=== PATIENT | male | born 1955 | race Caucasian/White ===

== ENCOUNTER 2017-03-17 05:50 | Day surgery (SDC) | payer OTHER ==
[~2017-03-17] VITALS: Ht 190.5 cm; Wt 93.2 kg
[2017-03-17 06:32] LABS: BASOPHILS 0 % (0-2); EOSINOPHILS 0.8 % (0-7); HEMATOCRIT 53.3 % (42.0-54.0); HEMOGLOBIN 17.8 g/dL (13.5-17.5); IMMATURE GRANULOCYTES 0.3 % (0-5); LYMPHOCYTES 17.5 % (15-50); MCH 31.1 pg (26.0-34.0); MCHC 33.4 g/dL (31.0-37.0); MEAN PLATELET VOLUME 10.1 fL (7.4-10.4); MONOCYTES 10.5 % (2-11); NEUTROPHILS 70.9 % (40-80); PLATELET COUNT 226 10x3/uL (130-400); RBC 5.73 10x6/uL (4.20-6.10); RDW 13.6 % (11.5-14.5); WBC 7.3 10x3/uL (4.8-10.8)
[2017-03-17 06:58] LABS: ANION GAP 12.4 mmol/L (8-16); CALCIUM 8.8 mg/dL (8.5-10.1); CARBON DIOXIDE 28.7 mmol/L (21.0-32.0); CREATININE - SERUM 1.4 mg/dL (0.6-1.3); POTASSIUM - SERUM 4.1 mmol/L (3.5-5.1)
[2017-03-17] MEDS ORDERED: OMEPRAZOLE40 MG PO (07:12)
[2017-03-17] MEDS ORDERED: BENICAR20 MG PO (07:12)
[2017-03-17] MEDS ORDERED: CLARITIN 10 MG10 MG PO (07:13)
[2017-03-17] MEDS ORDERED: SINGULAIR10 MG PO (07:16)
[2017-03-17] MEDS ORDERED: TESSALON PERLE100 MG PO (07:17)
[2017-03-17] MEDS ORDERED: LEVAQUIN500 MG PO (07:17)
[2017-03-17 07:24] VITALS: BP 102/64; Ht 190.5 cm; Wt 93.2 kg
--- NOTE | 2017-03-17 09:47 | NUR ---
0846- PT TO ROOM, LEFT LATERAL POSITION. AWAKE AND RESPONDING TO VERBAL STIMULI. AT BEDSIDE. PASSING GAS, FULL LIQUIDS OFFERED. 0900- AT BEDSIDE SPEAKING WITH PT AND SPOUSE ABOUT PROCEDURE AND FINDINGS. 0920- FULL LIQUIDS TOLERATED 0930- IV D/C'D, PT TOLERATED. CATHETER INTACT.
--- NOTE | 2017-03-17 10:02 | NUR ---
0955- DISCHARGE INSTRUCTIONS COMPLETED, PT VERBALIZED UNDERSTANDING. PAPERWORK SIGNED. 1000- PT DISCHARGED VIA WHEELCHAIR WITH .
--- NOTE | 2017-03-20 13:22 | OP ---
PATIENT NAME: LINDA DAIGLE MEDICAL RECORD: [id number] :53 LOCATION:D.OPS ADMISSION DATE: SURGEON: DEYSI CAMPBELL MD DATE OF OPERATION: 03/17/2017 REFERRED BY: Dr. Jose. OPERATION PERFORMED: Colonoscopy and cold biopsy forceps polypectomy, removing 1 sessile 3-mm benign appearing polyp from the descending colon. PREOPERATIVE DIAGNOSES: Personal history of colon polyps with last colonoscopy in excess of 5 years ago and family history of colon cancer in his mother and high risk individual for colorectal cancer. PREOPERATIVE NOTE: Mr. Daigle is a 62-year-old retired gentleman referred by Dr. Jose for colonoscopy. He has had multiple colonoscopies in the past since age 48 when he had his first screening exam and has had multiple polyps, most of these. His last colonoscopy was just over 5 years ago and he says he had 1 small polyp removed at that time. He is brought to the GI lab today as an outpatient on Dr. Jose's referral. He had a standard MiraLax bowel prep and is to receive TIVA with propofol per ROLLER LEVELER OPERATOR for the examination. Under TIVA and lateral decubitus position, a rectal exam was performed. This revealed no evidence of perianal sepsis or inflammation. He has some prolapsing internal and external hemorrhoidal columns with a prominent external hemorrhoidal tags, but no evidence of thrombosis or bleeding. Anal sphincter tone was normal, appreciated no masses and could not palpate the prostate well, but it's lower portion was without nodules and I was not impressed that it was enlarged. The Olympus colonoscope was then introduced through the anal canal and advanced fairly easily to the cecum. The prep was good. I documented the ileocecal valve and appendiceal orifice and slowly removed the scope obtaining an excellent examination. One small benign appearing sessile polypoid lesion in the descending colon was biopsied and removed with cold biopsy forceps. There were no other colonic lesions identified. There were no diverticula, etc. The scope was retroflexed in the rectum and no other lesions identified and again photography of the distal rectum and upper anal canal was done. The scope was removed and the patient then in stable condition awakened and later taken back to his room in the outpatient department. My recommendation for this patient is that he have a repeat colonoscopy probably best in 3 years as I consider him to be a high risk individual for colon cancer and a new polyps certainly it should be done, no more than 5 years from now. For today, he will resume his usual diet and medications and will follow up his appointment with Dr. Jose. He did not return to see me in the office other than on a p.r.n. basis. He has requested to call my office or call me personally on my cell phone if it's after hours or on weekends to report any difficulties with abdominal pain or any other concerns he might have. TRANSINT:[id number] Voice Confirmation ID: [id number] DOCUMENT ID: [id number] OPERATIVE REPORT [id number] LINDA DAIGLE, DEYSI KNIGHT at 1322 CC: ITZ JOSE DO [id number] DICTATION DATE: 03/17/17852 DRYING MACHINE OPERATOR: 03/17/[address] [facility] 03/17/17 [id number] [place] [address]
== END 2017-03-17 10:00 | disposition home or self-care (01) ==
LOC: D.OPS 05:50
PROVIDERS: Anesthesiology
DX: D12.4 Benign neoplasm of descending colon (principal); K21.9 Gastro-esophageal reflux disease without esophagitis; M19.90 Unspecified osteoarthritis, unspecified site; Z01.812 Encounter for preprocedural laboratory examination; Z95.0 Presence of cardiac pacemaker; Z80.0 Family history of malignant neoplasm of digestive organs

== ENCOUNTER 2018-06-22 07:19 | Day surgery (SDC) | payer MEDICARE, OTHER ==
[~2018-06-22] VITALS: Ht 190.5 cm; Wt 101.6 kg
--- NOTE | ~2018-06-22 | OP ---
PATIENT NAME: LINDA RODRIGUEZ MEDICAL RECORD: [id number] :51 LOCATION:D.OPS ADMISSION DATE: SURGEON: CHRISTIANO MAGALLON MD DATE OF OPERATION: 06/22/2018 PREOPERATIVE DIAGNOSES: 1. Right neck mass. 2. Atrial fibrillation. 3. Hypertension. 4. Hypercholesterolemia. POSTOPERATIVE DIAGNOSES: 1. Right neck mass. 2. Atrial fibrillation. 3. Hypertension. 4. Hypercholesterolemia. PROCEDURE: Excision of 2 cm right neck lipoma. SURGEON: Christiano Magallon MD REPORT OF PROCEDURE: The patient's right neck was prepped and draped in sterile fashion. An oblique incision was made overlying the mass. Electrocautery was used to dissect through the subcutaneous tissues. Underneath the muscle, there was a firm mass palpated. We some of the fibers of the muscle and were able to encounter a small to moderate size lipoma. This lipoma was excised from the surrounding tissues and once it was removed, it appeared to total approximately 2 cm in greatest diameter. The underlying tissue was inspected and there was no sign of any other masses or lesions visible. The wound was then irrigated out with normal saline and the subcutaneous tissues and muscle were reapproximated with interrupted 3-0 Vicryl. The skin was closed with running subcutaneous 5-0 Monocryl. A total of 10 mL of 0.25% Marcaine with epinephrine was infused into the surrounding tissues and the wound was dressed appropriately. COMPLICATIONS: None. CONDITION: Stable. ANESTHESIA: General endotracheal and local. BLOOD LOSS: Minimal. TRANSINT:[id number] Voice Confirmation ID: [id number] DOCUMENT ID: [id number] CHRISTIANO MAGALLON MD at 0918 CC: ITZ PATEL DO [id number] DICTATION DATE: 06/22/18 1110 MATERIALS ENGINEERING TECHNICIAN: 06/22/18 1308 [facility] 06/22/18 [place] [address]
[~2018-06-22 07:19] MED LIST: ASPIRIN EC81 M1 PO; BENICAR20 MG PO; BETAPACE 120 M120 MG PO; CLARITIN 10 MG10 MG PO; LEVAQUIN500 MG PO; OMEPRAZOLE40 MG PO; SINGULAIR10 MG PO; TESSALON PERLE100 MG PO
[2018-06-22 07:50] LABS: BASOPHILS 0.2 % (0-2); HEMATOCRIT 44.8 % (42.0-54.0); HEMOGLOBIN 15.3 g/dL (13.5-17.5); LYMPHOCYTES 26.8 % (15-50); MCH 31.3 pg (26.0-34.0); MCHC 34.2 g/dL (31.0-37.0); MCV 91.6 fL (80.0-100.0); MEAN PLATELET VOLUME 9.7 fL (7.4-10.4); MONOCYTES 8.9 % (2-11); NEUTROPHILS 62.1 % (40-80); PLATELET COUNT 217 10x3/uL (130-400); RBC 4.89 10x6/uL (4.20-6.10); RDW 13.1 % (11.5-14.5); WBC 4.5 10x3/uL (4.8-10.8)
[2018-06-22 08:05] LABS: ANION GAP 8.8 mmol/L (8-16); CALCIUM 8.3 mg/dL (8.5-10.1); CARBON DIOXIDE 30.4 mmol/L (21.0-32.0); CREATININE - SERUM 1.3 mg/dL (0.6-1.3); POTASSIUM - SERUM 4.2 mmol/L (3.5-5.1)
[2018-06-22 08:25] VITALS: BP 139/93; Ht 190.5 cm; Wt 101.6 kg
[2018-06-22] MEDS ORDERED: HYDROCODONE-APA1 TAB PO (11:03)
== END 2018-06-22 14:20 | disposition home or self-care (01) ==
LOC: D.OPS 07:19
PROVIDERS: Surgery
DX: D17.0 Benign lipomatous neoplasm of skin and subcutaneous tissue of head, face and neck (principal)

== ENCOUNTER → 2018-07-23 09:41 | Outpatient (CLI) | payer MEDICARE, OTHER ==
[2018-06-22 08:25] VITALS: BMI 28.0
[~2018-07-23 09:41] MED LIST changes: +HYDROCODONE-APA1 TAB PO
== END | disposition home or self-care (01) ==
LOC: D.CT 09:41
DX: R10.9 Unspecified abdominal pain (principal)

== ENCOUNTER → 2019-10-17 12:20 | Outpatient (CLI) | payer MEDICARE, OTHER ==
[2018-06-22 08:25] VITALS: BMI 28.0
== END | disposition home or self-care (01) ==
LOC: D.MRI 12:20
PROVIDERS: ATTEND Clinical Nurse Specialist Family Health
DX: M25.561 Pain in right knee (principal)

== ENCOUNTER 2019-12-01 05:10 | Day surgery (SDC) | payer MEDICARE, OTHER ==
[2019-11-30 09:30] LABS: ANION GAP 7.8 mmol/L (8-16); CALCIUM 8.6 mg/dL (8.5-10.1); CARBON DIOXIDE 32.5 mmol/L (21.0-32.0); CREATININE - SERUM 1.3 mg/dL (0.6-1.3); POTASSIUM - SERUM 4.3 mmol/L (3.5-5.1)
[2019-11-30 09:45] LABS: HEMATOCRIT 46.7 % (42.0-54.0); HEMOGLOBIN 15.9 g/dL (13.5-17.5); MCH 31.2 pg (26.0-34.0); MCV 91.7 fL (80.0-100.0); MEAN PLATELET VOLUME 9.7 fL (7.4-10.4); RBC 5.09 10x6/uL (4.20-6.10); WBC 4.8 10x3/uL (4.8-10.8)
[~2019-12-01] VITALS: Ht 190.5 cm; Wt 100.2 kg
[2019-12-01 06:02] VITALS: BP 138/96; Ht 190.5 cm; Wt 100.2 kg
[2019-12-01] MEDS ORDERED: HYDROCODON-ACE1 EA10 PO (08:23)
--- NOTE | 2019-12-01 10:05 | NUR ---
1000 PT ASKING FOR PAIN MEDICATION DUE TO BURNING SENSATION IN SURGICAL SITE. NORCO GIVEN ORDERED
--- NOTE | 2019-12-01 15:07 | NUR ---
1030 PT STATES THAT SURGICAL SITE IS STILL BURNING AND RATES IT A 3-4 OUT OF 10. NO REACTION NOTED FROM NORCO. IV DC'D. CATHETER TIP INTACT. NO BLEEDING AT SITE AFTER HOLDING PRESSURE. BANDAID APPLIED. 1041 NO DIFFICULTY IN TRANSFER FROM BED TO STRETCHER. PT READY TO BE DISCHARGED HOME
--- NOTE | 2019-12-05 08:35 | OP ---
PATIENT NAME: LINDA RODRIGUEZ MEDICAL RECORD: [id number] :51 LOCATION:D.OPS ADMISSION DATE: SURGEON: DEYSI LEAHY MD DATE OF OPERATION: 12/01/2019 PREOPERATIVE DIAGNOSIS: Medial meniscus tear of the right knee. POSTOPERATIVE DIAGNOSIS: Medial meniscus tear of the right knee. PROCEDURE: Arthroscopic partial medial meniscectomy of the right knee. SURGEON: Deysi Leahy MD ANESTHESIA: General. INTRAOPERATIVE COMPLICATIONS: None. 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 OPERATIVE SUMMARY IN DETAIL: After obtaining the appropriate preoperative orthopedic surgery consent as well as anesthetic consultation, evaluation and clearance, the patient was brought to the operating room and placed on the operating table in the supine position. After general laryngeal mask airway was administered, tourniquet was placed on the proximal aspect of the right lower extremity. Right lower extremity was prepped and draped in routine sterile fashion. At this point, the appropriate preoperative timeout was taken and agreed upon by all. The leg was elevated and exsanguinated, tourniquet was inflated to 350 mmHg. Routine inferolateral portal was established followed by superomedial portal and inferomedial portal. Diagnostic arthroscopy did reveal the patient to have the above findings. Combination of a meniscotome as well as a 4-0 resector were utilized to debride the patient's meniscus back to stable meniscal elements with good retained meniscus. Lateral compartment was clear as was the patellofemoral compartment. Having completed this, the knee was insufflated with 80 mg of Depo-Medrol and 30 cc of 0.25% Marcaine with epinephrine. Arthroscopy portals were closed in routine interrupted fashion using 4-0 Prolene. Sterile dressings were applied. The patient was awakened and taken to recovery room in stable condition. All final needle and sponge counts were correct. TRANSINT:[id number] Voice Confirmation ID: [id number] DOCUMENT ID: [id number] DEYSI LEAHY MD at 0835 CC: [id number] DICTATION DATE: 12/02/19 1104 SHUTTLE VAN DRIVER: 12/02/19 1531 [facility] 12/01/19 [id number] [place] [address]
== END 2019-12-01 10:41 | disposition home or self-care (01) ==
LOC: D.OPS 05:10 → D.PAN 07:30 → D.OPS 10:41
PROVIDERS: Anesthesiology; ATTEND Orthopaedic Surgery
DX: S83.241A Other tear of medial meniscus, current injury, right knee, initial encounter (principal); X58.XXXA Exposure to other specified factors, initial encounter